=== PATIENT | male | born 1950 | race Caucasian/White ===

== ENCOUNTER 2017-01-08 16:27 | Inpatient (IN) | payer OTHER ==
[2017-01-08] VITALS (7 sets, daily range): BP systolic 122–140; BP diastolic 63–72; PULSE 68–87; RESP 14–18; TEMP 97.6–98.3; O2SAT 96–100
[~2017-01-08] VITALS: Ht 177.8 cm; Wt 55.3 kg
[2017-01-08] MEDS ORDERED: LIPI20TA PO (17:07)
[2017-01-08] MEDS ORDERED: COUM7.5T PO (17:07)
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
[2017-01-08 17:21] LABS: AUTOMATED NEUTROPHIL # 3.5 TH/MM3 (1.8-7.7); BASOPHIL % 0.5 % (0.0-2.0); EOSINOPHIL % 0.4 % (0.0-4.0); HEMATOCRIT 37.3 % (39.0-51.0); HEMO FLAGS DIFF FINAL; LYMPH % 20.5 % (9.0-44.0); MEAN CELL VOLUME 87.5 FL (80.0-100.0); MEAN CORPUSCULAR HEMOGLOBIN 29.1 PG (27.0-34.0); MEAN CORPUSCULAR HGB CONC 33.3 % (32.0-36.0); MONO % 4.4 % (0.0-8.0); NEUT % 74.2 % (16.0-70.0); PLATELET COUNT 182 TH/MM3 (150-450); RED BLOOD COUNT 4.27 MIL/MM3 (4.50-5.90); RED CELL DISTRIBUTION WIDTH 13.3 % (11.6-17.2); WHITE BLOOD COUNT 4.7 TH/MM3 (4.0-11.0)
[2017-01-08 17:29] LABS: INTERNATIONAL NORMALIZED RATIO 2.3 RATIO; PROTHROMBIN TIME - PATIENT 26.3 SEC (9.8-11.6)
[2017-01-08 17:35] LABS: BICARBONATE 28.3 MEQ/L (21.0-32.0); POTASSIUM 3.3 MEQ/L (3.5-5.1)
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
[2017-01-08] MEDS ORDERED: SODIUM CHLOR 0.9% 250 ML INJ 250 ML IV ONE (18:30)
[2017-01-08] MEDS ORDERED: PHYTONADIONE INJ 1 MG/0.5 ML AMP SQ ONE (18:30)
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
[2017-01-08] MEDS ORDERED: PHYTONADIONE 10 MG/ML VIAL SQ ONE (19:00)
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
[2017-01-08] MEDS ORDERED: RESP: ALBUTEROL 2.5 MG/IPRATROPIUM 0.5 MG NEB (PRN) INH (20:00)
[2017-01-08] MEDS ORDERED: MISCELLANEOUS NURSING INFORMATION XX SCH (20:00)
[2017-01-08] MEDS ORDERED: METOCLOPRAMIDE HCL 10 MG/2 ML VIAL IV PRN (20:00)
[2017-01-08] MEDS ORDERED: ONDANSETRON HCL 4 MG/2 ML VIAL IV PRN (20:00)
[2017-01-08] MEDS ORDERED: SODIUM CHLORIDE 0.9% FLUSH 10 ML FLUSH PRN (20:00)
[2017-01-08] MEDS ORDERED: CHLORHEXIDINE GLUCONATE 2 % 1 PACK (2 CLOTHS) TOP PRN (20:00)
[2017-01-08] MEDS: SODIUM CHLOR 0.9% 1000 ML INJ 1,000 ML IV SCH (20:04)
[2017-01-08] MEDS: SODIUM CHLORIDE 0.9% FLUSH 10 ML FLUSH SCH (21:00)
[2017-01-09] VITALS (12 sets, daily range): BP systolic 100–132; BP diastolic 57–70; PULSE 54–66; RESP 11–18; TEMP 97.1–99.8; O2SAT 91–96
[2017-01-09] MEDS: ATORVASTATIN 20 MG TAB PO SCH ×2 (00:06→21:40)
[2017-01-09] MEDS: oxyCODONE/ACETAMINOPHEN 5 MG/325 MG TAB PO PRN ×3 (01:18→17:24)
[2017-01-09] MEDS: CHLORHEXIDINE GLUCONATE 2 % 1 PACK (2 CLOTHS) TOP SCH (04:00)
[2017-01-09 04:09] LABS: AUTOMATED NEUTROPHIL # 5.5 TH/MM3 (1.8-7.7); BASOPHIL % 0.3 % (0.0-2.0); HEMATOCRIT 30.8 % (39.0-51.0); HEMO FLAGS DIFF FINAL; LYMPH % 6.9 % (9.0-44.0); LYMPHOCYTE # 0.4 TH/MM3 (1.0-4.8); MEAN CELL VOLUME 87.9 FL (80.0-100.0); MEAN CORPUSCULAR HEMOGLOBIN 30.2 PG (27.0-34.0); MEAN CORPUSCULAR HGB CONC 34.4 % (32.0-36.0); MONO % 5.4 % (0.0-8.0); NEUT % 87.4 % (16.0-70.0); PLATELET COUNT 154 TH/MM3 (150-450); RED CELL DISTRIBUTION WIDTH 13.3 % (11.6-17.2); WHITE BLOOD COUNT 6.3 TH/MM3 (4.0-11.0)
[2017-01-09 04:43] LABS: ALKALINE PHOSPHATASE 55 U/L (45-117); ALT (GPT) 37 U/L (12-78); ANION GAP 9 MEQ/L (5-15); AST (GOT) 24 U/L (15-37); BICARBONATE 31.4 MEQ/L (21.0-32.0); BLOOD UREA NITROGEN 11 MG/DL (7-18); CHLORIDE 103 MEQ/L (98-107); GLOMERULAR FILTRATION RATE 102 ML/MIN (>89); POTASSIUM 3.3 MEQ/L (3.5-5.1); SODIUM (NA) 143 MEQ/L (136-145); TOTAL BILIRUBIN ADULT 0.5 MG/DL (0.2-1.0)
[2017-01-09] MEDS: SODIUM CHLOR 0.9% 1000 ML INJ 1,000 ML IV SCH ×2 (08:08→19:40)
[2017-01-09 08:18] LABS: HEMATOCRIT 32.6 % (39.0-51.0); MEAN CELL VOLUME 88.2 FL (80.0-100.0); MEAN CORPUSCULAR HEMOGLOBIN 29.1 PG (27.0-34.0); PLATELET COUNT 153 TH/MM3 (150-450); REVIEW FLAG FINAL; WHITE BLOOD COUNT 5.2 TH/MM3 (4.0-11.0)
[2017-01-09 08:25] LABS: APTT (PATIENT) 33.2 SEC (24.3-30.1); INTERNATIONAL NORMALIZED RATIO 1.3 RATIO; PROTHROMBIN TIME - PATIENT 15.1 SEC (9.8-11.6)
[2017-01-09 08:38] LABS: BICARBONATE 30.6 MEQ/L (21.0-32.0); POTASSIUM 3.2 MEQ/L (3.5-5.1)
[2017-01-09] MEDS: SODIUM CHLORIDE 0.9% FLUSH 10 ML FLUSH SCH ×2 (09:00→21:00)
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
[2017-01-09] MEDS ORDERED: POTASSIUM CHLORIDE 25 MEQ EFFERVESCENT TAB PO ONE (09:15)
--- NOTE | 2017-01-09 09:20 | RADRPT ---
EXAM DATE/TIME: 01/09/2017 08:35 [place] COMPARISON: CT BRAIN W/O CONTRAST, January 08, 2017, 17:32. INDICATIONS : Follow up bleed. RADIATION DOSE: 56.37 CTDIvol (mGy) MEDICAL HISTORY : None SURGICAL HISTORY : None. ENCOUNTER: Subsequent ACUITY: 2 days PAIN SCALE: 0/10 LOCATION: cranial TECHNIQUE: Multiple contiguous axial images were obtained of the head. Using automated exposure control and adj ustment of the mA and/or kV according to patient size, radiation dose was kept as low as reasonably a chievable to obtain optimal diagnostic quality images. FINDINGS: There are small punctate areas of hemorrhage at the green-white junction in the high left frontal sav on and left parietal lobe measuring no more than 5 mm characteristic of sheer type injury. There is n o significant mass effect or midline shift. No extra-axial fluid collections are identified. Old righ t occipital lobe infarct is present. CONCLUSION: 1. Stable small punctate contusions as above characteristic of sheer type injury. Salvatore Dooley MD on January 09, 2017 at 9:10 Board Certified Radiologist. This report was verified electronically.
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
[2017-01-10 00:09] VITALS: BP 166/66; PULSE 61; RESP 16; TEMP 98; O2SAT 94
[2017-01-10] MEDS: CHLORHEXIDINE GLUCONATE 2 % 1 PACK (2 CLOTHS) TOP SCH (04:00)
[2017-01-10 04:51] VITALS: BP 117/66; PULSE 66; RESP 18; TEMP 99; O2SAT 94
[2017-01-10 07:23] LABS: INTERNATIONAL NORMALIZED RATIO 1.2 RATIO; PROTHROMBIN TIME - PATIENT 13.8 SEC (9.8-11.6)
[2017-01-10] MEDS: PANTOPRAZOLE SOD 40 MG DELAYED RELEASE TAB PO SCH (08:42)
[2017-01-10] MEDS: oxyCODONE/ACETAMINOPHEN 5 MG/325 MG TAB PO PRN ×2 (08:42→15:22)
[2017-01-10] MEDS: SODIUM CHLOR 0.9% 1000 ML INJ 1,000 ML IV SCH (08:44)
[2017-01-10] MEDS: SODIUM CHLORIDE 0.9% FLUSH 10 ML FLUSH SCH ×2 (08:45→20:33)
[2017-01-10 09:58] VITALS: BP 125/63; PULSE 61; RESP 18; TEMP 98.3; O2SAT 93
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
--- NOTE | 2017-01-10 12:00 | HHI.FF ---
Face to Face Verification Diagnosis: (1) Hyperlipidemia (2) Anticoagulation adequate with anticoagulant therapy (3) Intracranial hemorrhage following injury with concussion (4) History of CVA with residual deficit Physical Therapy Order: Evaluate and Treat Home Health Nursing Order: Medical education Nursing assessment with vital signs I have seen patient Tej Rothman on 01/10/17. My clinical findings support the need for the requested home health care services because: Deconditioned w/ increased weakness Need for psychosocial assistance High risk of falls I certify that my clinical findings support that this patient is homebound because: Need for psychosocial assistance Maral Stoll [facility] Jan 10, 2017 11:59
[2017-01-10 14:09] VITALS: BP 97/52; PULSE 65; RESP 18; TEMP 96.9; O2SAT 92
[2017-01-10 17:58] VITALS: BP 113/57; PULSE 62; RESP 18; TEMP 97.8; O2SAT 95
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
[2017-01-10 20:00] VITALS: BP 103/56; PULSE 57; RESP 20; TEMP 97.4; O2SAT 98
[2017-01-10] MEDS: ATORVASTATIN 20 MG TAB PO SCH (20:34)
[2017-01-11] VITALS: BP 118/70; PULSE 58; RESP 18; TEMP 97.6; O2SAT 97
[2017-01-11 04:00] VITALS: BP 121/69; PULSE 62; RESP 20; TEMP 98.3; O2SAT 93
[2017-01-11] MEDS: CHLORHEXIDINE GLUCONATE 2 % 1 PACK (2 CLOTHS) TOP SCH (04:00)
[2017-01-11 08:00] VITALS: BP 139/74; PULSE 69; RESP 18; TEMP 97.6; O2SAT 95
[2017-01-11] MEDS: PANTOPRAZOLE SOD 40 MG DELAYED RELEASE TAB PO SCH (09:15)
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
[2017-01-11] MEDS ORDERED: MAGNESIUM HYDROXIDE SUSP 30 ML CUP PO PRN (11:30)
[2017-01-11 12:36] VITALS: BP 102/58; PULSE 66; RESP 18; TEMP 98.6; O2SAT 97
[2017-01-11] MEDS ORDERED: ACET325T PO (13:53)
[2017-01-11] MEDS ORDERED: WARF-21 PO (13:53)
[2017-01-11] MEDS ORDERED: OXYC1TAB63 PO (13:53)
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
[2017-01-11 16:29] VITALS: BP 110/62; PULSE 57; RESP 18; TEMP 97.9; O2SAT 97
[2017-01-11] MEDS: ACETAMINOPHEN 325 MG TAB PO PRN (16:33)
[2017-01-11 20:00] VITALS: BP 123/62; PULSE 65; RESP 18; TEMP 96.5; O2SAT 97
[2017-01-11] MEDS: SODIUM CHLORIDE 0.9% FLUSH 10 ML FLUSH SCH (20:15)
[2017-01-11] MEDS: ATORVASTATIN 20 MG TAB PO SCH (20:15)
[2017-01-12] VITALS: BP 115/58; PULSE 62; RESP 18; TEMP 99.2; O2SAT 93
[2017-01-12 04:00] VITALS: BP 132/75; PULSE 63; RESP 18; TEMP 97.9; O2SAT 96
[2017-01-12] MEDS: CHLORHEXIDINE GLUCONATE 2 % 1 PACK (2 CLOTHS) TOP SCH (04:00)
[2017-01-12 08:00] VITALS: BP 111/55; PULSE 61; RESP 18; TEMP 97.6; O2SAT 94
[2017-01-12] MEDS: PANTOPRAZOLE SOD 40 MG DELAYED RELEASE TAB PO SCH (09:27)
[2017-01-12] MEDS: ACETAMINOPHEN 325 MG TAB PO PRN (10:07)
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
[2017-01-12] MEDS ORDERED: POLYETHYLENE GLYCOL 17 GM PKG PO ONE (11:30)
[2017-01-12 12:28] VITALS: BP 97/55; PULSE 75; RESP 18; TEMP 98.1; O2SAT 95
[2017-01-12 16:28] VITALS: BP 97/62; PULSE 61; RESP 18; TEMP 98.1; O2SAT 98
== END 2017-01-12 20:10 | DRG 83 ==
LOC: NEPC 16:27 → NEDH 18:38 → N05A 01-09 16:57
PROVIDERS: ADMIT Specialist; ATTEND Specialist
DX: S06.309A Unspecified focal traumatic brain injury with loss of consciousness of unspecified duration, initial encounter (principal); D68.9 Coagulation defect, unspecified; M32.9 Systemic lupus erythematosus, unspecified; M48.02 Spinal stenosis, cervical region; V13.4XXA Pedal cycle driver injured in collision with car, pick-up truck or van in traffic accident, initial encounter; Y92.410 Unspecified street and highway as the place of occurrence of the external cause; E78.5 Hyperlipidemia, unspecified; E87.6 Hypokalemia; K59.00 Constipation, unspecified; M47.812 Spondylosis without myelopathy or radiculopathy, cervical region; M81.0 Age-related osteoporosis without current pathological fracture; S00.81XA Abrasion of other part of head, initial encounter; T45.515A Adverse effect of anticoagulants, initial encounter; Z79.01 Long term (current) use of anticoagulants; Z85.828 Personal history of other malignant neoplasm of skin; Z86.73 Personal history of transient ischemic attack (TIA), and cerebral infarction without residual deficits; Z87.891 Personal history of nicotine dependence
CPT/HCPCS: 36430; 70450; 71010; 72125; 72170; 80048; 80053; 82550; 83735; 84100; 85025; 85027; 85610; 85730; 86900; 86901; 86927; J3430; J7030; J7050; L0150; P9017